=== PATIENT | male | born 1995 | race Caucasian/White ===

== ENCOUNTER 2025-01-23 09:07 | Emergency (ER) | payer OTHER ==
[~2025-01-23] VITALS: Ht 177.8 cm; Wt 74.6 kg
--- NOTE | 2025-01-23 09:24 | ED.PDOC ---
History of Present Illness HPI Comments This is a 29-year-old male who comes in with chief complaint of right testicular swelling and pain. The patient states that he stood up this morning at approximately 7:15 a.m. and then developed the pain. He states that the pain is a 7/10. There has been no nausea, vomiting or diarrhea. The patient states that he has never had these symptoms for. He denies any direct trauma at this time. Chief Complaint: Testicle Pain Time Seen by MD: 09:11 Primary Care Provider: DELFINO Encarnacion Notes: Nurses Notes, Medications, Allergies (No allergies to medications) Allergies: Coded Allergies: NO KNOWN ALLERGIES (Unverified , 08/27/11) Home Meds Active Scripts Doxycycline Hyclate (DOXYCYCLINE HYCLATE) 100 Mg Tab, 1 TAB PO BID, #20 TAB Prov:DENIS LAMBERT MD 01/23/25 Information Source: Patient Mode of Arrival: Ambulatory Severity: Moderate Timing: Hours Duration: Since onset Prehospital treatment: None Location: Testicular pain and swelling Associated signs and symptoms No dysuria or discharge Past Medical History PAST MEDICAL HISTORY: Denies Surgical History (Other): Left knee surgery Family History Family History: No family hx of DM, No family hx of Heart sonido Social History Smoker: Non-Smoker Alcohol: Denies ETOH Use Drugs: Denies Drug Use Lives In: Home Constitutional: denies: chills, diaphoresis, fatigue, fever, malaise, sweats, weakness, others EENTM: denies: blurred vision, double vision, ear bleeding, ear discharge, ear drainage, ear pain, ear ringing, eye pain, eye redness, hearing loss, mouth pain, mouth swelling, nasal discharge, nose bleeding, nose congestion, nose pain, photophobia, tearing, throat pain, throat swelling, voice changes, others Respiratory: denies: cough, hemoptysis, orthopnea, SOB at rest, shortness of breath, SOB with excertion, stridor, wheezing, others Cardiovascular: denies: chest pain, dizzy spells, diaphoresis, Dyspnea on exertion, edema, irregular heart beat, left arm pain, lightheadedness, palpitations, PND, syncope, others Gastrointestinal: denies: abdomen distended, abdominal pain, blood streaked bowels, constipated, diarrhea, dysphagia, difficulty swallowing, hematemesis, melena, nausea, poor appetite, poor fluid intake, rectal bleeding, rectal pain, vomiting, others Genitourinary: reports: testicle pain, testicle swelling (Right-sided); denies: burning, dysuria, flank pain, frequency, hematuria, incontinence, penile discharge, penile sore, pain, urgency, others Neurological: denies: dizziness, fainting, headache, left sided numbness, left sided weakness, numbness, paresthesia, pre-existing deficit, right sided numbness, right sided weakness, seizure, speech problems, tingling, tremors, weakness, others Musculoskeletal: denies: back pain, gout, joint pain, joint swelling, muscle pain, muscle stiffness, neck pain, others Integumetry: denies: bruises, change in color, change in hair/nails, dryness, laceration, lesions, lumps, rash, wounds, others Allergic/Immunocompromised: denies: Difficulty Healing, Frequent Infections, Hives, Itching, others Hematologic/Lymphatic: denies: anemia, blood clots, easy bleeding, easy bruisi ng, swollen glands, others Endocrine: denies: excessive hunger, excessive sweating, excessive thirst, exce ssive urination, flushing, intolerance to cold, intolerance to heat, unexplained weight gain, unexplained weight loss, others Psychiatric: denies: anxiety, bipolar disorder, depression, hopeless, panic disorder, schizophrenia, sleepless, suicidal, others Physical Exam General Appearance: Mild Distress HEENT: Normal ENT Inspection, Pharynx Normal, TMs Normal Neck: Full Range of Motion, Non-Tender, Normal, Normal Inspection Respiratory: Chest Non-Tender, Lungs Clear, No Accessory Muscle Use, No Respiratory Distress, Normal Breath Sounds Cardiovascular: No Edema, No JVD, No Murmur, No Gallop, Normal Peripheral Pulses, Regular Rate/Rhythm Breast Exam: Deferred Gastrointestinal: No Organomegaly, Non Tender, No Pulsatile Mass, Normal Bowel Sounds, Soft Genitalia: Testicle (Right testicular swelling and tenderness) Pelvic: Deferred Rectal: Deferred Extremities: No calf tenderness, Normal capillary refill, Normal inspection, Normal range of motion, Non-tender, No pedal edema Musculoskeletal : Apperance: Normal Neurologic: Alert, hand stamper II-XII nml as Tested, No Motor Deficits, Normal Affect, Normal Mood, No Sensory Deficits Cerebellar Function: Normal Reflexes: Normal Skin: Dry, Normal Color, Warm Lymphatic: No Adenopathy Was a procedure done? Was a procedure done?: No Differential Dx Considerations may include: Testicular torsion, UTI, epididymitis X-Ray, Labs, Meds, VS Vital Signs Date Time Temp Pulse Resp B/P (MAP) Pulse Ox O2 Delivery O2 Flow Rate FiO2 01/23/25 09:19 97.4 76 18 121/66 (84) 98 97.4 Lab Test 01/23/25 09:18 Range/Units Urine Color Pending Urine Clarity Pending Urine pH Pending Urine Specific [place] Pending Urine Protein Pending Urine Ketones Pending Urine Blood Pending Urine Nitrite Pending Urine Bilirubin Pending Urine Urobilinogen Pending Urine Leukocyte Esterase Pending Urine RBC Pending Urine Microscopic WBC Pending Urine Squamous Epithelial Cells Pending Urine Bacteria Pending Urine Glucose Pending PROCEDURE(s): TESUS - TESTICULAR ULTRASOUND REASON: pain and swelling ORDER NUMBER(s): [id number], ACCESSION NUMBER(s): [id number] IMPRESSION: Findings suggestive of right epididymitis. At this time, the patient was being discharged The patient was given Rocephin as an injection IM The patient was then placed on doxycycline The patient will follow up with the primary care doctor The patient will return to the emergency department's condition worsens. Images Reviewed?: Images reviewed and evaluated by me Time of 1ST Reevaluation: 09:23 Reevaluation 1ST: Unchanged Patient Education/Counseling: Diagnosis, Treatment, Prognosis, Need For Follow Up Family Education/Counseling: No Family Present Departure 1 Departure Time of Disposition: 10:45 Impression: Primary Impression: Epididymitis Disposition: 01 HOME / SELF CARE / HOMELESS Condition: Fair e-Prescriptions Doxycycline Hyclate (DOXYCYCLINE HYCLATE) 100 Mg Tab 1 TAB PO BID, #20 TAB Prov: DENIS LAMBERT MD 01/23/25 Discharged With: Self Critical Care Note Critical Care Time?: No Stability Stability form required: No Heart Score Heart Score: Heart Score Response (Comments) Value History N/A 0 EKG N/A 0 Age N/A 0 Risk Factors N/A 0 Troponin N/A 0 Total 0 I personally scribed for DENIS LAMBERT MD ([email or web address]) on 01/23/25 at 10:13. Electronically submitted by Zahra Gramajo ([email or web address]). DENIS LAMBERT MD Jan 23, 2025 09:24
--- NOTE | 2025-01-23 10:01 | DVH ---
ULTRASOUND OF SCROTUM AND CONTENTS. INDICATION: pain and swelling COMPARISON: None TECHNIQUE: Multiple real-time grayscale sonographic and color and duplex Doppler images of the scrotu m and its contents were obtained. FINDINGS: The right testicle measures 5.2 x 3.3 x 3.5 cm. The left testicle measures 4.7 x 2.7 x 3.0 cm. Both testicles demonstrate homogeneous echotexture without evidence of focal lesions. There is enlargement and increased flow to the right epididymis. Small right hydrocele. There is a le ft epididymal cyst measuring 1.1 cm. Subsequent color and duplex Doppler interrogation of the testes demonstrated symmetric normal vascula r flow to both testicles. IMPRESSION: Findings suggestive of right epididymitis.
[2025-01-23] MEDS ORDERED: DOXY-286 PO (10:31)
[2025-01-23 10:40] LABS: Urine Bacteria None Seen /hpf (None Seen)
[2025-01-23 10:44] VITALS: BP 130/90; PULSE 87; RESP 18; TEMP 99; O2SAT 98
[2025-01-23 10:47] LABS: Urine Blood Negative /uL (Negative); Urine Clarity Clear (Clear); Urine Color Colorless (Yellow); Urine Protein, UAD Negative (Negative); Urine Specific Gravity 1.005 (1.001-1.035); Urine Squamous Epithelial Cell None Seen /hpf (<5); Urine Urobilinogen Normal (Negative); Urine pH 6.5 (5.0-9.0)
[2025-01-23] MEDS: cefTRIAXone SOD 500 MG VL IM ONE (10:55)
[2025-01-23] MEDS: LIDOCAINE 1% HCL (LOCAL ANESTH.) INJ 20ML MDV ID ONE (11:05)
== END 2025-01-23 11:07 | disposition home or self-care (01) ==
LOC: ER 09:07
DX: N45.1 Epididymitis (principal); Z98.890 Other specified postprocedural states; Z79.899 Other long term (current) drug therapy
CPT/HCPCS: 76870; 81001; 96372; 99285; J0696; J2003